=== PATIENT | male | born 1930 | race Caucasian/White ===

== ENCOUNTER 2016-11-22 15:17 | Inpatient (IN) | payer MEDICARE ==
[~2016-11-22] VITALS: Ht 188 cm; Wt 68.5 kg
[~2016-11-22 15:17] MED LIST: ACET650S12 PR; ACID1TAB7 PO; AMLO10TA4 PO; AMOX-367 PO; ASPI-496 PO; BISA10SU2 PR; BISA10SU65 PR; CEFD300C37 PO; CHOL4PAC11 PO; ENOX40SY4 SQ; FLUC200T PO; LACT1CAP24 PO; LEVO25TA4 PO; MEMA28CA PO; MEMA5TAB PO; MEMA7CAP PO; METR500T8 PO; NYST60PO TP; POLY17PO5 PO; RISP0.2518 PO; RIVA1PAT22 TD; VANC125C2 PO; VANC1VIA3 PO
[2016-11-22] MEDS ORDERED: SODIUM CHLORIDE FLUSH 10ML SYR IVF ONE (15:30)
[2016-11-22 16:08] LABS: HEMATOCRIT 34.4 % (39.2-51.8); HEMOGLOBIN 11.2 g/dL (13.7-18.0); WHITE BLOOD COUNT 13.2 x10^3/uL (3.4-10)
[2016-11-22 16:25] LABS: BLOOD UREA NITROGEN 31 mg/dL (7-18)
[2016-11-22 16:30] LABS: IS PT STATUS REG ER OR PRE ER? YES
[2016-11-22] MEDS ORDERED: AZITHROMYCIN 250 MG TABLET PO ONE (19:00)
[2016-11-22] MEDS ORDERED: AZITHROMYCIN 250 MG TABLET ONE (19:36)
[2016-11-22] MEDS ORDERED: SODIUM CHLORIDE 0.9% 1,000 ML IV SCH (19:59)
[2016-11-22] MEDS ORDERED: DOCUSATE 100 MG CAPSULE PO PRN (20:00)
[2016-11-22] MEDS ORDERED: BISACODYL 10 MG SUPP PR PRN (20:00)
[2016-11-22] MEDS ORDERED: GUAIFENESIN/DM 200-20MG, 10ML UDC PO PRN (20:00)
[2016-11-22] MEDS ORDERED: ACETAMINOPHEN 325 MG TABLET PO PRN (20:00)
[2016-11-22] MEDS ORDERED: HYDROcodone/APAP 5/325 TABLET PO PRN (20:00)
[2016-11-22] MEDS ORDERED: RISPERIDONE 0.5 MG TABLET PO PRN (20:00)
[2016-11-22] MEDS ORDERED: morphine SULFATE 10 MG/ML, 1ML IVPush PRN (20:00)
[2016-11-22] MEDS ORDERED: ONDANSETRON 2MG/ML, 2ML IVPush PRN (20:00)
[2016-11-22] MEDS ORDERED: POLYETHYLENE GLYCOL 17 GM PACKET PO PRN (20:00)
[2016-11-22] MEDS ORDERED: ENOXAPARIN 40 MG/0.4 ML ONE (20:30)
[2016-11-22] MEDS ORDERED: CEFTRIAXONE PMX 1GM/50ML 50 ML ONE (20:30)
[2016-11-22] MEDS: ENOXAPARIN 40 MG/0.4 ML SQ SCH (20:39)
[2016-11-22] MEDS: CEFTRIAXONE PMX 1GM/50ML 50 ML IV SCH (20:39)
[2016-11-22] MEDS ORDERED: ALBUTEROL/IPRATROPIUM 2.5MG/0.5MG, 3 ML NPPB PRN (22:00)
[2016-11-23 02:00] VITALS: BP 128/70
[2016-11-23 05:18] LABS: HEMATOCRIT 30.6 % (39.2-51.8); HEMOGLOBIN 10.1 g/dL (13.7-18.0); WHITE BLOOD COUNT 9.3 x10^3/uL (3.4-10)
[2016-11-23 05:20] LABS: BLOOD UREA NITROGEN 30 mg/dL (7-18)
[2016-11-23] MEDS: NYSTATIN TOPICAL POWDER 15GM TP SCH ×3 (05:29→20:33)
[2016-11-23 08:00] VITALS: BP 110/61
[2016-11-23] MEDS: MEMANTINE HCL 28 MG HOMEMEDPO SCH (09:00)
[2016-11-23] MEDS ORDERED: RIVASTIGMINE 4.6MG/24HR PATCH TD SCH (09:00)
[2016-11-23] MEDS: SENNA/DOCUSATE TABLET PO SCH (09:02)
[2016-11-23] MEDS: AMLODIPINE 5 MG TABLET PO SCH (09:03)
[2016-11-23] MEDS: TAMSULOSIN 0.4 MG CAP.ER.24H PO SCH (09:03)
[2016-11-23] MEDS: ASPIRIN 81 MG TABLET EC PO SCH (09:03)
[2016-11-23] MEDS: LEVOTHYROXINE 25 MCG TABLET PO SCH (09:03)
[2016-11-23 14:00] VITALS: BP 128/54
[2016-11-23] MEDS: AZITHROMYCIN 500 MG in SODIUM CHLORIDE 0.9% 250 ML IV SCH (19:19)
[2016-11-23 19:35] VITALS: BP 101/54
[2016-11-23] MEDS: CEFTRIAXONE PMX 1GM/50ML 50 ML IV SCH (20:33)
[2016-11-23] MEDS: ENOXAPARIN 40 MG/0.4 ML SQ SCH (20:33)
[2016-11-24 00:54] VITALS: BP 100/58
[2016-11-24 05:33] LABS: HEMOGLOBIN 9.9 g/dL (13.7-18.0); WHITE BLOOD COUNT 9.1 x10^3/uL (3.4-10)
[2016-11-24 05:37] LABS: BLOOD UREA NITROGEN 31 mg/dL (7-18)
[2016-11-24] MEDS ORDERED: SODIUM CHLORIDE 0.9% 1,000 ML IV SCH (08:00)
[2016-11-24 08:32] VITALS: BP 108/60
[2016-11-24] MEDS: SENNA/DOCUSATE TABLET PO SCH (09:41)
[2016-11-24] MEDS: TAMSULOSIN 0.4 MG CAP.ER.24H PO SCH (09:41)
[2016-11-24] MEDS: LEVOTHYROXINE 25 MCG TABLET PO SCH (09:41)
[2016-11-24] MEDS: ASPIRIN 81 MG TABLET EC PO SCH (09:41)
[2016-11-24] MEDS: AMLODIPINE 5 MG TABLET PO SCH (09:41)
[2016-11-24] MEDS: RIVASTIGMINE 9.5MG/24HR PATCH TD SCH (09:42)
[2016-11-24] MEDS: MEMANTINE HCL 28 MG HOMEMEDPO SCH (09:42)
[2016-11-24] MEDS: NYSTATIN TOPICAL POWDER 15GM TP SCH ×2 (09:43→20:31)
[2016-11-24 15:34] VITALS: BP 117/60
[2016-11-24] MEDS: AZITHROMYCIN 500 MG in SODIUM CHLORIDE 0.9% 250 ML IV SCH (19:16)
[2016-11-24 20:15] VITALS: BP 123/65
[2016-11-24] MEDS: ENOXAPARIN 40 MG/0.4 ML SQ SCH (20:30)
[2016-11-24] MEDS: CEFTRIAXONE PMX 1GM/50ML 50 ML IV SCH (20:30)
[2016-11-25 01:35] VITALS: BP 123/69
[2016-11-25 08:00] VITALS: BP 125/70
[2016-11-25 08:19] LABS: HEMATOCRIT 31.3 % (39.2-51.8); HEMOGLOBIN 10.3 g/dL (13.7-18.0); WHITE BLOOD COUNT 7.8 x10^3/uL (3.4-10)
[2016-11-25 08:27] LABS: BLOOD UREA NITROGEN 27 mg/dL (7-18)
[2016-11-25] MEDS: RIVASTIGMINE 9.5MG/24HR PATCH TD SCH (09:00)
[2016-11-25] MEDS: MEMANTINE HCL 28 MG HOMEMEDPO SCH (09:00)
[2016-11-25] MEDS: ASPIRIN 81 MG TABLET EC PO SCH (09:35)
[2016-11-25] MEDS: SENNA/DOCUSATE TABLET PO SCH (09:35)
[2016-11-25] MEDS: AMLODIPINE 5 MG TABLET PO SCH (09:35)
[2016-11-25] MEDS: TAMSULOSIN 0.4 MG CAP.ER.24H PO SCH (09:35)
[2016-11-25] MEDS: LEVOTHYROXINE 25 MCG TABLET PO SCH (09:35)
[2016-11-25] MEDS: NYSTATIN TOPICAL POWDER 15GM TP SCH (09:36)
[2016-11-25] MEDS ORDERED: METRONIDAZOLE PMX 500MG/100ML 100 ML IV SCH (13:30)
[2016-11-25] MEDS ORDERED: CLIN300C8 PO (13:45)
[2016-11-25 13:51] VITALS: BP 105/52
== END 2016-11-25 18:45 | DRG 871 ==
LOC: ED 16:52 → EDIP 19:23 → 3NE 21:36
PROVIDERS: ADMIT Family Medicine; ATTEND Family Medicine
DX: A41.9 Sepsis, unspecified organism (principal); J96.01 Acute respiratory failure with hypoxia; N17.0 Acute kidney failure with tubular necrosis; E03.9 Hypothyroidism, unspecified; E86.0 Dehydration; F03.90 Unspecified dementia, unspecified severity, without behavioral disturbance, psychotic disturbance, mood disturbance, and anxiety; J45.909 Unspecified asthma, uncomplicated; N18.9 Chronic kidney disease, unspecified; J20.9 Acute bronchitis, unspecified; E05.90 Thyrotoxicosis, unspecified without thyrotoxic crisis or storm; Z88.0 Allergy status to penicillin
CPT/HCPCS: 36415; 71010; 80048; 81001; 82040; 83735; 84100; 84484; 85025; 87040; 93005; 99285; J0456; J0696; J1650; 92523-GN; J7030; J7050